=== PATIENT | female | born 1985 | race Caucasian/White ===

== ENCOUNTER 2018-04-18 08:39 | Inpatient (IN) | payer MEDICAID ==
[2018-04-17 12:55] LABS: ALANINE AMINOTRANSFERASE 26 U/L (12-78); ALBUMIN 3.8 g/dL (3.4-5.0); ANION GAP 10 mmol/L (5-15); CALCIUM 8.2 mg/dL (8.5-10.1); CHLORIDE 114 mmol/L (98-107); CREATININE 0.85 mg/dL (0.55-1.02)
[2018-04-17 12:58] LABS: ALKALINE PHOSPHATASE 59 U/L (45-117); BILIRUBIN,TOTAL 0.2 mg/dL (0.2-1.0); TOTAL PROTEIN 6.5 g/dL (6.4-8.2)
[~2018-04-18] VITALS: Ht 162.6 cm; Wt 56.8 kg
[~2018-04-18 08:39] MED LIST: CO Q10 PO; ONDA8TAB9 PO; OXYC10TA47 PO; OXYC10TA6 PO; POTASSIUM PO; TOPI25TA8 PO
[2018-04-18] MEDS ORDERED: ACETAMINOPHEN 500 MG TABLET PO ONE (09:00)
[2018-04-18] MEDS ORDERED: SCOPOLAMINE PATCH, 1.5MG PATCH.TD72 TD ONE (09:00)
[2018-04-18] MEDS ORDERED: ONDANSETRON ODT 8 MG PO ONE (09:00)
[2018-04-18] MEDS ORDERED: GABAPENTIN 300 MG CAPSULE PO ONE (09:00)
[2018-04-18] MEDS ORDERED: OxyconTIN ER 20 MG TAB.ER PO ONE (09:00)
[2018-04-18] MEDS ORDERED: MIDAZOLAM 1 MG/ML, 2ML ONE (09:13)
[2018-04-18] MEDS ORDERED: LIDOCAINE JELLY 2%, 30GM ONE (09:13)
[2018-04-18] MEDS ORDERED: FENTANYL PF 250 MCG/5ML ONE (09:13)
[2018-04-18] MEDS: LACTATED RINGERS 1,000 ML IV SCH ×2 (09:25→09:30)
[2018-04-18 09:26] VITALS: BP 103/69
[2018-04-18] MEDS ORDERED: KETAMINE 50 MG/ML, 10ML ONE (09:41)
[2018-04-18] MEDS ORDERED: FENTANYL PF 100 MCG/2ML IV PRN (10:30)
[2018-04-18] MEDS ORDERED: ALBUTEROL/IPRATROPIUM 2.5MG/0.5MG, 3 ML NPPB PRN (10:30)
[2018-04-18] MEDS ORDERED: LORazepam 2 MG/ML, 1ML IVPush PRN (10:30)
[2018-04-18] MEDS ORDERED: OXYcodone 5 MG/5 ML ORAL.SOL UDC PO PRN (10:30)
[2018-04-18] MEDS ORDERED: MEPERIDINE/PF 25MG/0.5ML IVPush PRN (10:30)
[2018-04-18] MEDS ORDERED: HALOPERIDOL 5 MG/ML IV PRN (10:30)
[2018-04-18] MEDS ORDERED: HYDROmorphone 2 MG/ML, 1ML IVPush PRN (10:30)
[2018-04-18] MEDS ORDERED: MIDAZOLAM 1 MG/ML, 2ML IV PRN (10:30)
[2018-04-18] MEDS ORDERED: LABETALOL 5MG/ML, 20ML IV PRN (10:30)
[2018-04-18] MEDS ORDERED: hydrALAzine 20 MG/ML, 1ML IV PRN (10:30)
[2018-04-18] MEDS ORDERED: METOCLOPRAMIDE 5 MG/ML, 2ML IV PRN (10:30)
[2018-04-18] MEDS ORDERED: DIAZEPAM 5 MG/ML, 2ML IVPush PRN (10:30)
[2018-04-18] MEDS ORDERED: ONDANSETRON 2MG/ML, 2ML IV PRN ×2 (10:30→14:00)
[2018-04-18] MEDS ORDERED: EPHEDRINE 50 MG/ML, 1ML IM PRN (10:30)
[2018-04-18] MEDS ORDERED: GLYCOPYRROLATE 0.2MG/1ML, 5ML ONE (10:39)
[2018-04-18] MEDS ORDERED: NEOSTIGMINE 1 MG/ML, 10ML ONE (10:39)
[2018-04-18] MEDS ORDERED: DEXAMETHASONE 4 MG/ML, 1ML ONE (10:39)
[2018-04-18] MEDS ORDERED: PROPOFOL 10 MG/ML, 20ML ONE (10:39)
[2018-04-18] MEDS ORDERED: CEFAZOLIN 1,000 MG ONE (10:39)
[2018-04-18] MEDS ORDERED: ROCURONIUM 10MG/ML,5ML ONE (10:39)
[2018-04-18] MEDS ORDERED: BUPIVACAINE/PF 0.25% ONE ×2 (10:39)
[2018-04-18] MEDS ORDERED: EPINEPHRINE 1 MG/ML, 1ML ONE (10:41)
[2018-04-18] MEDS ORDERED: HYDROmorphone 2 MG/ML, 1ML ONE (10:46)
[2018-04-18] MEDS ORDERED: KETOROLAC 30 MG/1 ML ONE (11:03)
[2018-04-18] MEDS ORDERED: FENTANYL PF 100 MCG/2ML ONE (11:13)
[2018-04-18 13:22] VITALS: BP 114/69
[2018-04-18] MEDS ORDERED: MEPERIDINE/PF 100 MG/ML IM PRN (14:00)
[2018-04-18] MEDS: KETOROLAC 30 MG/1 ML IV SCH ×2 (14:07→20:20)
[2018-04-18] MEDS: POTASSIUM CHLORIDE 20 MEQ in D5%-LACTATED RINGERS 1,000 ML IV SCH (14:31)
[2018-04-18] MEDS: SIMETHICONE 80 MG CHEW TAB PO SCH ×2 (15:43→20:19)
[2018-04-18] MEDS: OxyconTIN ER 10 MG TAB.ER PO SCH ×2 (15:43→22:15)
[2018-04-18] MEDS: HYDROmorphone 2 MG/ML, 1ML IV PRN ×3 (15:49→20:51)
[2018-04-18] MEDS: CEFAZOLIN PMX 1GM/50ML 50 ML IVPB SCH (17:28)
[2018-04-18] MEDS: OXYcodone IR 30 MG TABLET PO PRN (17:33)
[2018-04-18 20:45] VITALS: BP 112/69
[2018-04-19 00:14] VITALS: BP 101/58
[2018-04-19] MEDS: POTASSIUM CHLORIDE 20 MEQ in D5%-LACTATED RINGERS 1,000 ML IV SCH ×2 (00:39→07:53)
[2018-04-19] MEDS: OXYcodone IR 30 MG TABLET PO PRN (00:39)
[2018-04-19] MEDS: CEFAZOLIN PMX 1GM/50ML 50 ML IVPB SCH (02:16)
[2018-04-19] MEDS: KETOROLAC 30 MG/1 ML IV SCH ×2 (02:16→07:57)
[2018-04-19] MEDS: OxyconTIN ER 10 MG TAB.ER PO SCH ×2 (04:02→10:06)
[2018-04-19 04:10] VITALS: BP 100/58
[2018-04-19] MEDS: HYDROmorphone 2 MG/ML, 1ML IV PRN (05:51)
[2018-04-19 07:18] VITALS: BP 90/48
[2018-04-19] MEDS: SIMETHICONE 80 MG CHEW TAB PO SCH (07:57)
[2018-04-19] MEDS ORDERED: IBUPROFEN 600 MG TABLET PO SCH ×2 (09:00→16:00)
[2018-04-19 12:18] VITALS: BP 111/56
[2018-04-19] MEDS ORDERED: IBUP-1222 PO (13:18)
[2018-04-19] MEDS ORDERED: ESTR2TAB PO (13:18)
== END 2018-04-19 13:37 | disposition home or self-care (01) | DRG 743 ==
LOC: ORIP 08:39 → EDSTATUS 10:00 → 4NOR 13:15 → DCLOUNGE 04-19 13:10
PROVIDERS: ADMIT Specialist; ATTEND Specialist
PROC: 0UT70ZZ Resection of Bilateral Fallopian Tubes, Open Approach (ICD-10-PCS; 2018-04-18)
PROC: 0UT20ZZ Resection of Bilateral Ovaries, Open Approach (ICD-10-PCS; 2018-04-18)
PROC: 0UN10ZZ Release Left Ovary, Open Approach (ICD-10-PCS; 2018-04-18)
PROC: 3E0T3BZ Introduction of Anesthetic Agent into Peripheral Nerves and Plexi, Percutaneous Approach (ICD-10-PCS; 2018-04-18)
PROC: 0UT90ZL Resection of Uterus, Supracervical, Open Approach (ICD-10-PCS; principal; 2018-04-18 10:00)
DX: N80.1 Endometriosis of ovary (principal); G89.29 Other chronic pain; F17.210 Nicotine dependence, cigarettes, uncomplicated; K21.9 Gastro-esophageal reflux disease without esophagitis; F41.1 Generalized anxiety disorder; K58.9 Irritable bowel syndrome, unspecified; Z88.5 Allergy status to narcotic agent; Z90.49 Acquired absence of other specified parts of digestive tract
CPT/HCPCS: 36415; J3490; J7121; 80053; 84703; 85014; 85018; 88307; G0378; J0171; J0690; J1100; J1170; J1885; J2250; J2704; J2710; J3010; J3480; Q0162; J7120

== ENCOUNTER 2018-05-18 14:57 | Emergency (ER) | payer MEDICAID ==
[~2018-05-18] VITALS: Ht 162.6 cm; Wt 54.5 kg
[~2018-05-18 14:57] MED LIST changes: +ESTR2TAB PO; +IBUP-1222 PO
--- NOTE | 2018-05-18 14:57 | NUR ---
BIB EMS for N/V x 5 days with history of cyclic vomiting syndrome. Pt took home dose of 8mg SL Zofran with no effect.
[2018-05-18] MEDS ORDERED: ONDA4TAB7 PO (15:10)
--- NOTE | 2018-05-18 15:17 | NUR ---
PIV established, labs drawn.
--- NOTE | 2018-05-18 15:45 | NUR ---
Dr. Hale at bedside to evaluate pt.
[2018-05-18] MEDS ORDERED: HALOPERIDOL 5 MG/ML ONE (15:47)
[2018-05-18] MEDS ORDERED: DIPHENHYDRAMINE 50 MG/ML, 1ML ONE (15:47)
[2018-05-18] MEDS ORDERED: METOCLOPRAMIDE 5 MG/ML, 2ML ONE (15:47)
[2018-05-18] MEDS ORDERED: HALOPERIDOL 5 MG/ML IM ONE (16:00)
[2018-05-18] MEDS ORDERED: SODIUM CHLORIDE 0.9% 1,000ML IVBOLUS ONE (16:00)
[2018-05-18] MEDS ORDERED: DICYCLOMINE 10 MG/ML, 2ML IM ONE (16:00)
[2018-05-18] MEDS ORDERED: DIPHENHYDRAMINE 50 MG/ML, 1ML IVPush ONE (16:00)
[2018-05-18] MEDS ORDERED: METOCLOPRAMIDE 5 MG/ML, 2ML IVPush ONE (16:00)
[2018-05-18 16:04] LABS: BASOPHILS # (AUTO) 0.06 x10^3/uL (0-0.1); BASOPHILS % (AUTO) 1 % (0-1); EOSINOPHILS # (AUTO) 0.01 x10^3/uL (0-0.4); EOSINOPHILS % (AUTO) 0 % (1-7); LYMPHOCYTES # (AUTO) 1.25 x10^3/uL (1-3.4); LYMPHOCYTES % (AUTO) 13 % (22-44); MD NO; MEAN CORPUSCULAR HEMOGLOBIN 31.6 pg (27.0-34.8); MEAN CORPUSCULAR HGB CONC 33.6 g/dL (32.4-35.8); MEAN PLATELET VOLUME 9.1 fL (7.4-10.4); MONOCYTES # (AUTO) 0.59 x10^3/uL (0.2-0.8); MONOCYTES % (AUTO) 6 % (2-9); NEUTROPHILS # (AUTO) 7.97 x10^3/uL (1.8-6.8); NEUTROPHILS % (AUTO) 81 % (42-75); PLATELET COUNT 370 x10^3/uL (130-400); RED BLOOD COUNT 5.22 x10^6/uL (3.82-5.3); RED CELL DISTRIBUTION WIDTH 12.6 % (9.6-15.2)
[2018-05-18 16:12] LABS: ALANINE AMINOTRANSFERASE 27 U/L (12-78); ALBUMIN 5.2 g/dL (3.4-5.0); ANION GAP 13 mmol/L (5-15); CHLORIDE 107 mmol/L (98-107); CREATININE 0.99 mg/dL (0.55-1.02)
[2018-05-18 16:14] LABS: ALKALINE PHOSPHATASE 68 U/L (45-117); BILIRUBIN,TOTAL 0.8 mg/dL (0.2-1.0); TOTAL PROTEIN 8.2 g/dL (6.4-8.2)
[2018-05-18] MEDS ORDERED: DICYCLOMINE 10 MG/ML, 2ML ONE (16:19)
--- NOTE | 2018-05-18 16:23 | NUR ---
Pt ambulated to bathroom, no assistance required. Urine sample requested. Pt medicated per MAR when back to bed.
--- NOTE | 2018-05-18 16:25 | NUR ---
Pt unable to provide urine sample.
--- NOTE | 2018-05-18 17:01 | NUR ---
Pt given water for PO challenge. Pt took 2 very small sips, and stated, "I don't want to" pt advised that we want to be able to see if she can hold water/liquids down so that she can go home, at which point pt stated, "I want to stay here."
--- NOTE | 2018-05-18 17:40 | NUR ---
Dr. Hale at bedside to recheck pt. Pt continues to c/o pain and nausea.
[2018-05-18] MEDS ORDERED: ONDANSETRON 2MG/ML, 2ML ONE (18:01)
[2018-05-18 18:10] VITALS: BP 115/70
--- NOTE | 2018-05-18 18:27 | NUR ---
Patient/Caregiver given discharge instructions and they have confirmed that they understand the instructions. Patient ambulatory with steady gait.
[2018-05-18] MEDS ORDERED: ONDANSETRON 2MG/ML, 2ML IVPush ONE (19:00)
== END 2018-05-18 18:28 | disposition home or self-care (01) ==
LOC: ED 17:26
DX: R11.2 Nausea with vomiting, unspecified (principal); R10.84 Generalized abdominal pain; Z90.710 Acquired absence of both cervix and uterus; F17.200 Nicotine dependence, unspecified, uncomplicated; Z88.5 Allergy status to narcotic agent; Z88.0 Allergy status to penicillin
CPT/HCPCS: 36415; 80053; 83690; 85025; 96361; 96372; 96374; 96375; 99283; J0500; J1200; J1630; J2405; J2765; J7030